=== PATIENT | female | born 1975 | race Caucasian/White ===

== ENCOUNTER 2018-06-06 09:35 | Day surgery (SDC) | payer BC, OTHER ==
[~2018-06-06 09:35] MED LIST: Buffered Lidocaine 1% SYRIN* 1 ML/SYRINGE INTRADERM ONE; Lactated Ringers 1000 ML Bag* 1,000 ML IV SCH; Sodium Citrate/Citric Acid* 15 ML UDC PO ONE
[2018-06-06] MEDS ORDERED: Buffered Lidocaine 1% SYRIN* 1 ML/SYRINGE INTRADERM ONE (09:55)
[2018-06-06] MEDS ORDERED: Sodium Citrate/Citric Acid* 15 ML UDC ONE (09:55)
[2018-06-06] MEDS ORDERED: ceFAZolin 2 GM in NS PREMIX(*) 2 GM/100 ML BAG IVPB ONE (09:56)
[2018-06-06] MEDS ORDERED: ceFAZolin 1 GM in Dextrose (*) 1 GM/50 ML BAG IVPB ONE (10:03)
[2018-06-06] MEDS ORDERED: Midazolam* 1 MG/ML 5 ML VIAL (5 MG) ONE (11:12)
[2018-06-06] MEDS ORDERED: Chloroprocaine 2%* 20 ML VIAL ONE (11:12)
[2018-06-06] MEDS ORDERED: Bupivacaine 0.25% SDV PF* 10 ML VIAL INJ ONE (11:13)
[2018-06-06] MEDS ORDERED: Midazolam* 1 MG/ML 2 ML VIAL (2 MG) ONE (11:45)
[2018-06-06] MEDS ORDERED: Propofol* 10 MG/ML 20 ML BTL ONE ×2 (11:51→12:56)
[2018-06-06] MEDS ORDERED: Naloxone* 0.4 MG/ML 1 ML VIAL IV PRN (12:04)
[2018-06-06] MEDS ORDERED: Ondansetron INJ* 2 MG/ML VIAL IV PRN (12:04)
[2018-06-06] MEDS ORDERED: fentaNYL* 50 MCG/ML 2 ML VIAL (100 MCG VIAL) ONE ×2 (13:11→14:09)
[2018-06-06] MEDS: fentaNYL* 50 MCG/ML 2 ML VIAL (100 MCG VIAL) IV PRN ×3 (13:12→14:09)
[2018-06-06] MEDS ORDERED: Ketorolac INJ* 30 MG/ML 1 ML VIAL ONE (13:14)
--- NOTE | 2018-06-06 13:39 | OP ---
Operative Report - Blank - Operative Report Date of Operation: 06/06/18 Note: PATIENT: Cristina Palomino DATE OF : 1975 DATE OF SURGERY: 06/06/2018 SURGEON: Abraham Gaona MD [employer] HOPPER FEEDER: LAURA Montes, whos assistance was necessary for positioning, retraction, help with instrumentation, and closure. ANESTHESIOLOGIST: Dr. Magana PREOPERATIVE DIAGNOSIS: Right Achilles tendinopathy, calcaneal exostosis, and gastrocnemius contracture. POSTOPERATIVE DIAGNOSIS: Right Achilles tendinopathy, Achilles tendon tear, calcaneal exostosis, and gastrocnemius contracture. OPERATION: 1. Right Achilles tendon debridement and secondary repair 2. Right calcaneus partial excision/saucerization 3. Right gastrocnemius recession (Manolo procedure) ANESTHESIA: Spinal IMPLANTS: Arthrex Speedbridge TOURNIQUET TIME: Less than 90 minutes with a well-padded thigh tourniquet at 250mmHg SPECIMENS: none ESTIMATED BLOOD LOSS: minimal COMPLICATIONS: none STATUS: Stable from the operating room to the recovery room and then home. INDICATIONS FOR PROCEDURE: Cristina has had persistent pain at her insertional Achilles refractory to non-op treatment. Both operative and non operative treatment alternatives were reviewed. Further, the nature and risks of surgery were reviewed in careful detail in the office as well as in the preoperative holding area. Our discussions regarding the risks of surgery included, but were not limited to, infection, wound problems, nerve injury, neuroma, RSD, persistent symptoms, blood clot, rupture or failure to heal, failure of the surgery, and even the remote chance of catastrophic complication, including loss of limb. DESCRIPTION OF PROCEDURE: The patient was seen in the preoperative holding unit and informed written consent was obtained. The appropriate extremity was marked. The patient was then brought to the operating room and carefully positioned on the operating room table in the prone position. Anesthesia was induced. All bony prominences were padded with great care. A well-padded thigh tourniquet was placed. A chlorhexidine based pre-scrub was performed followed by a chloraprep prep and drape in standard sterile fashion. A surgical safety pause was then conducted in which we confirmed the appropriate patient, extremity, planned procedure, availability of equipment, indication and administration of prophylactic antibiotics, and DVT prophylaxis in the form of a compression boot on the non- surgical extremity. Exsanguination of the extremity was performed and the tourniquet was inflated. I began by utilizing a longitudinal incision overlying the posteromedial of the Achilles. I then carefully dissected down to the tendinous layer, maintaining full-thickness flaps. I exposed the Achilles tendon and removed it from the posterior aspect of the calcaneus. There was some degeneration of the tendon, which was sharply excised with a 15 blade scalpel. There was a split longitudinal tear of the tendon which was repaired with 0 Vicryl suture. I then exposed the calcaneal exostoses as well as the posterior-superior calcaneal tuberosity, which was prominent. I then utilized a small oscillating saw to excise the exostosis and prominent aspect of the calcaneal tuberosity, thus performing a saucerization of the calcaneus. I made sure all edges were smooth with a rasp and [place]. There was significant tension on the tendon after debridement when I reapproximated it to the calcaneus so I decided to move forward with a gastrocnemius recession. I made an approximately 3-cm incision at the posteromedial calf. I carried the dissection through the soft tissue and divided the crural fascia longitudinally. I then exposed the fascia of the gastrocnemius muscle. Great care was taken to protect the sural nerve throughout this procedure. I cleared all adhesions from the posterior aspect of the gastrocnemius fascia and then transected this in its entirety from medially to laterally. I then identified the plantaris tendon, which was also tight medially. This was transected. I then again confirmed that the sural nerve was in continuity. I then used an Arthrex speedbridge to perform a double row repair of the Achilles insertion on to the freshly osteotomized surface of the posterior calcaneus. This provided excellent fixation and compression of the insertional Achilles. The distal wound was then copiously irrigated and meticulously closed in layers utilizing 3-0 Monocryl for the subdermal layer, and 3-0 nylon for the skin. The proximal wound was was irrigated and closed in layers using 3-0 Monocryl and skin flakito. A sterile dressing was then applied followed by a splint with the ankle in resting equinus position. The patient was then awakened from anesthesia and transferred to the recovery room in stable condition. There were no complications. All needle and sponge counts were correct at the end of the case. ATTESTATION: I attest I was present and scrubbed and performed the critical portions of the procedure myself. POSTOPERATIVE PLAN: The patient will remain [id number] for an anticipated duration is 4 weeks and follow up in two weeks for likely suture removal and Steri-Strip application.
[2018-06-06] MEDS ORDERED: EPINEPHRINE 1 MG/ML 1 ML VIAL ONE (13:54)
[2018-06-06] MEDS ORDERED: Bupivacaine 0.5% SDV PF* 30ML VIAL ONE (13:54)
[2018-06-06] MEDS ORDERED: Bupivacaine 0.5% W/EPI SDV* 30 ML VIAL ONE (14:20)
[2018-06-06 15:21] VITALS: BP 119/76
--- NOTE | 2018-06-07 00:32 | PRO ---
DATE OF SERVICE: 06/06/18 [facility] HISTORY: I was called by Dr. Magana to assist with a postop nerve block for the patient at the request of Dr. Gaona for control of postoperative pain. The risks and benefits of the procedure including, but not limited to bleeding, bruising, infection, nerve injury were discussed with Ms. Palomino, who did verbalize understanding prior to receiving anesthesia for surgery and again in the postoperative holding area. Both she and her family consented to proceed with the nerve block in the PACU in addition to her prior consent in her discussion with Dr. Magana. PROCEDURE: Right sided popliteal sciatic nerve block for postoperative pain as requested by Dr. Abraham Gaona for control of postoperative pain. Ultrasound guidance was used. The patient was placed in a left lateral recumbent position. Her vital signs were monitored by the ORTHODONTIST VICE PRESIDENT, Zeeshan. Her right leg was prepped in the usual sterile fashion. An ultrasound machine was used to identify the popliteal artery as well as the tibial nerve and lateral peroneal nerves. A 21-gauge 4- inch EchoStim needle was used to access the perineural space under ultrasound visualization. No intravascular or intraneural injections occurred throughout the procedure. A total of 15 cc of 0.5% bupivacaine with epinephrine 1:200,000 was injected into the perineural space after aspirate was negative for heme throughout each 5 cc. A picture on the ultrasound machine was obtained and placed in the patient's chart. The patient tolerated the procedure well with no paresthesias. She experienced immediate relief of her right sided ankle pain, which was previously an 8/10 per her report despite management with postoperative medications in the PACU. She was then continually monitored by the PACU nurse until she met discharge criteria and was found to have no additional complications as a result of the nerve block. She was subsequently discharged with the usual instructions and her questions were answered and her concerns were adequately addressed. [id number]/[facility] #: [id number] [facility] CENTERValentino
== END 2018-06-06 15:25 | disposition home or self-care (01) ==
LOC: OR 09:35
PROVIDERS: ATTEND Orthopaedic Surgery
DX: M76.61 Achilles tendinitis, right leg (principal); M67.01 Short Achilles tendon (acquired), right ankle; M25.774 Osteophyte, right foot; G89.18 Other acute postprocedural pain; J45.909 Unspecified asthma, uncomplicated; K21.9 Gastro-esophageal reflux disease without esophagitis; Z68.39 Body mass index [BMI] 39.0-39.9, adult
CPT/HCPCS: 76000; 81025; A9270-GY; C1713; J0690; J1885; J2250; J2400; J2704; J3010; J3490